=== PATIENT | female | born 1940 | race American Indian/Alaskan Native ===

== ENCOUNTER 2016-12-31 13:33 | Inpatient (IN) | payer MEDICARE, BC ==
--- NOTE | 2016-12-31 14:21 | EDM.PDOC ---
ED HPI GENERAL MEDICAL PROBLEM - General Chief Complaint: Gastrointestinal Problem Stated Complaint: stomach pain hi fever Time Seen by Provider: 12/31/16 14:00 Source of Information: Reports: Patient, Family, RN, RN notes reviewed History Limitations: Reports: No limitations - History of Present Illness INITIAL COMMENTS - FREE TEXT/NARRATIVE: Three days of fever, cough, nausea, vomiting and today had diarrhea. Admits to mild sore throat. Onset Date: 12/28/16 Location: Reports: other (generalized) Quality: Reports: Ache Severity: moderate Improves with: Reports: None Worsens with: Reports: None Associated Symptoms: Reports: no other symptoms - Related Data Allergies Allergy/AdvReac Type Severity Reaction Status Date / Time morphine Allergy Cannot Verified 12/31/16 14:57 Remember Home Meds: Home Meds Furosemide [Lasix] 20 mg PO ASDIRECTED 12/31/16 [History] Hydrochlorothiazide 12.5 mg PO ASDIRECTED 12/31/16 [History] Levothyroxine Sodium [Levo-T] 200 mcg PO .EVERY OTHER DAY 12/31/16 [History] Levothyroxine Sodium [Tirosint] 100 mcg PO .EVERY OTHER DAY 12/31/16 [History] Losartan Potassium 100 mg PO ASDIRECTED 12/31/16 [History] Metoprolol Succinate [Toprol XL] 100 mg PO DAILY 12/31/16 [History] Omeprazole 20 mg PO DAILY 12/31/16 [History] Warfarin [Coumadin] 5 mg PO DAILY 12/31/16 [History] metFORMIN [Glucophage] 500 mg PO BIDMEALS 12/31/16 [History] Past Medical History Cardiovascular History: Reports: Heart Failure, Other (see below) (aortic stenosis. mitral valve disease.) Respiratory History: Reports: Other (see below) (pleural effusions) - Past Surgical History Cardiovascular Surgical History: Reports: Coronary artery bypass (graft x2.), Valve replacement (mitral) GI Surgical History: Reports: Appendectomy, Cholecystectomy Female Surgical History: Reports: Hysterectomy Social & Family History - Family History Family Medical History: Noncontributory - Tobacco Use Smoking Status *Q: Never Smoker - Alcohol Use Alcohol Use History: No ED ROS GENERAL - Review of Systems Review Of Systems: ROS reveals no pertinent complaints other than HPI. ED EXAM, GENERAL - Physical Exam Exam: See Below Exam Limited By: No limitations General Appearance: alert, WD/WN, no apparent distress Eye Exam: bilateral eye: normal inspection Ears: normal external exam, normal canal, hearing grossly normal, normal TMs Nose: normal inspection, normal mucosa, no blood Throat/Mouth: Other (dry oral membranes. Mild pharyngeal erythema.) Head: atraumatic, normocephalic Neck: normal inspection, supple, non-tender, full range of motion Respiratory/Chest: other (decreased sounds at bilateral bases. ) Cardiovascular: other (irregular irregular 3/6 systolic ejection murmur) GI/Abdominal: other (mild generalized tenderness) Back Exam: normal inspection, full range of motion, NT Extremities: normal inspection, normal range of motion, non-tender, normal capillary refill, no pedal edema Neurological: alert, oriented, CN II-XII intact, normal cognition, normal gait, normal reflexes, no motor/sensory deficits Psychiatric: normal affect, normal mood Skin Exam: Warm, Dry, Intact, Normal color, No rash EKG INTERPRETATION EKG Date: 12/31/16 Time: 14:38 Rhythm: a-fib Rate (beats/min): 91 [place]: normal P-wave: absent QRS: other (Borderline IVCD with LAD) ST-T: other (borderline lateral T wave abnormalities) QT: normal Comparison: NA - no prior EKG Course - Vital Signs Last Recorded V/S: Last Vital Signs Temp 37.8 C 12/31/16 14:49 Pulse 83 12/31/16 14:49 Resp 16 12/31/16 14:49 BP 114/60 12/31/16 14:49 Pulse Ox 93 L 12/31/16 14:49 - Orders/Labs/Meds Orders: Active Orders 24 hr Category Date Time Status EKG 12 Lead [EKG Documentation Completion] [RC] STAT Care 12/31/16 14:16 Active Peripheral IV Care [RC] . DIRECTED Care 12/31/16 14:18 Active Abdomen Pelvis wo Cont [CT] Stat Exams 12/31/16 15:28 Taken CULTURE BLOOD [BC] Stat Lab 12/31/16 14:35 Received CULTURE BLOOD [] Stat Lab 12/31/16 14:35 Results CULTURE STREP A CONFIRMATION [] Stat Lab 12/31/16 14:33 Results STREP SCRN A RAPID W CULT CONF [] Stat Lab 12/31/16 14:33 Results Sodium Chloride 0.9% [Saline Flush] Med 12/31/16 14:18 Active 10 ml FLUSH ASDIRECTED PRN Blood Culture x2 Reflex Set [OM.PC] Stat Oth 12/31/16 14:17 Ordered Peripheral IV Insertion Adult [OM.PC] Stat Oth 12/31/16 14:16 Ordered Medication Orders Sodium Chloride (Saline Flush) 10 ml FLUSH ASDIRECTED PRN PRN Reason: Keep Vein Open Labs: Laboratory Tests 12/31/16 12/31/16 12/31/16 Range/Units 14:00 14:35 14:35 WBC 10.4 H (5.0-10.0) 10^3/uL RBC 4.19 L (4.2-5.4) 10^6/uL Hgb 11.6 L (12.0-16.0) g/dL Hct 35.5 L (37.0-47.0) % MCV 84.7 (80-100) fL MCH 27.7 (27.0-34.0) pg MCHC 32.7 L (33.0-35.0) g/dL Plt Count 166 (150-450) 10^3/uL Neut % (Auto) 80.6 H (42.2-75.2) % Lymph % (Auto) 8.0 L (20.5-50.1) % Blair % (Auto) 10.7 H (2-8) % Eos % (Auto) 0.3 L (1.0-3.0) % Baso % (Auto) 0.4 (0.0-1.0) % PT (9.0-12.0) SEC INR (0.9-1.2) Sodium 134 L (135-145) mmol/L Potassium 3.2 L (3.6-5.0) mmol/L Chloride 97 L (101-111) mmol/L Carbon Dioxide 25.0 (21.0-31.0) mmol/L Anion Gap 15.2 BUN 15 (7-18) mg/dL Creatinine 1.0 (0.6-1.3) mg/dL Est Cr Clr Drug Dosing TNP Estimated GFR (MDRD) 54 BUN/Creatinine Ratio 15.00 Glucose 184 H (74-105) mg/dL Lactic Acid (0.5-2.2) mmol/L Calcium 8.8 (8.4-10.2) mg/dl Total Bilirubin 2.1 H (0.2-1.0) mg/dL AST 37 (10-42) IU/L ALT 33 (10-60) IU/L Alkaline Phosphatase 47 (42-121) IU/L Troponin I 0.03 H* (0.00-0.02) ng/ml B-Natriuretic Peptide 413 H (0-100) pg/ml Total Protein 7.1 (6.7-8.2) g/dl Albumin 3.9 (3.2-5.5) g/dl Globulin 3.2 Albumin/Globulin Ratio 1.22 Amylase 22 L (28-100) U/L Lipase 19 L (22-51) U/L Urine Color Yellow (YELLOW) Urine Appearance Clear (CLEAR) Urine pH 5.0 (5.0-9.0) Ur Specific [place] 1.010 (1.005-1.030) Urine Protein Negative (NEGATIVE) Urine Glucose (UA) Negative (NEGATIVE) Urine Ketones Negative (NEGATIVE) Urine Occult Blood Trace-intact H (NEGATIVE) Urine Nitrite Negative (NEGATIVE) Urine Bilirubin Negative (NEGATIVE) Urine Urobilinogen 0.2 (0.2-1.0) mg/dL Ur Leukocyte Esterase Trace H (NEGATIVE) Urine RBC Not seen /HPF Urine WBC 0-5 (0-5/HPF) /HPF Ur Epithelial Cells Rare /HPF Urine Bacteria Not seen (0-FEW/HPF) /HPF 12/31/16 12/31/16 Range/Units 14:35 14:35 WBC (5.0-10.0) 10^3/uL RBC (4.2-5.4) 10^6/uL Hgb (12.0-16.0) g/dL Hct (37.0-47.0) % MCV (80-100) fL MCH (27.0-34.0) pg MCHC (33.0-35.0) g/dL Plt Count (150-450) 10^3/uL Neut % (Auto) (42.2-75.2) % Lymph % (Auto) (20.5-50.1) % Blair % (Auto) (2-8) % Eos % (Auto) (1.0-3.0) % Baso % (Auto) (0.0-1.0) % PT 15.6 H (9.0-12.0) SEC INR 1.5 H (0.9-1.2) Sodium (135-145) mmol/L Potassium (3.6-5.0) mmol/L Chloride (101-111) mmol/L Carbon Dioxide (21.0-31.0) mmol/L Anion Gap BUN (7-18) mg/dL Creatinine (0.6-1.3) mg/dL Est Cr Clr Drug Dosing Estimated GFR (MDRD) BUN/Creatinine Ratio Glucose (74-105) mg/dL Lactic Acid 2.4 H (0.5-2.2) mmol/L Calcium (8.4-10.2) mg/dl Total Bilirubin (0.2-1.0) mg/dL AST (10-42) IU/L ALT (10-60) IU/L Alkaline Phosphatase (42-121) IU/L Troponin I (0.00-0.02) ng/ml B-Natriuretic Peptide (0-100) pg/ml Total Protein (6.7-8.2) g/dl Albumin (3.2-5.5) g/dl Globulin Albumin/Globulin Ratio Amylase (28-100) U/L Lipase (22-51) U/L Urine Color (YELLOW) Urine Appearance (CLEAR) Urine pH (5.0-9.0) Ur Specific [place] (1.005-1.030) Urine Protein (NEGATIVE) Urine Glucose (UA) (NEGATIVE) Urine Ketones (NEGATIVE) Urine Occult Blood (NEGATIVE) Urine Nitrite (NEGATIVE) Urine Bilirubin (NEGATIVE) Urine Urobilinogen (0.2-1.0) mg/dL Ur Leukocyte Esterase (NEGATIVE) Urine RBC /HPF Urine WBC (0-5/HPF) /HPF Ur Epithelial Cells /HPF Urine Bacteria (0-FEW/HPF) /HPF Meds: Medications Generic Name Dose Route Start Last Admin Trade Name Freq PRN Reason Stop Dose Admin Sodium Chloride 10 ml 12/31/16 14:18 Saline Flush FLUSH ASDIRECTED PRN Keep Vein Open Discontinued Medications Generic Name Dose Route Start Last Admin Trade Name Freq PRN Reason Stop Dose Admin Ceftriaxone Sodium 1 gm/ 50 mls @ 100 mls/hr 12/31/16 15:31 12/31/16 15:51 Sodium Chloride IV 12/31/16 16:00 100 mls/hr ONETIME ONE Administration - Radiology Interpretation Free Text/Narrative:: Abdomen X-ray: Few loops of distended bowel may represent obstruction or ileus per rad report. Chest x-ray: Per rad report shows mild opacities in the bases may represent atelectasis or pneumonia. CT abdomen and and pelvis: A few loops of mildly dilated small bowel with air- fluid levels may represent minimal obstruction or ileus. 3cm left ovarian cyst. Hepatomegaly 20cm. Splenomegaly 14cm. Departure - Departure Time of Disposition: 16:44 (Dr. Wade) Disposition: DC/Tfer to [facility] 02 Condition: fair Clinical Impression: Small bowel obstruction, Atelectasis of both lungs Fever Qualifiers: Fever type: unspecified Qualified Code(s): R50.9 - Fever, unspecified Forms: ED Department Discharge - My Orders Last 24 Hours: My Active Orders 12/31/16 14:16 EKG 12 Lead [EKG Documentation Completion] [RC] STAT Peripheral IV Insertion Adult [OM.PC] Stat 12/31/16 14:17 Blood Culture x2 Reflex Set [OM.PC] Stat 12/31/16 14:18 Peripheral IV Care [RC] . DIRECTED Sodium Chloride 0.9% [Saline Flush] 10 ml FLUSH ASDIRECTED PRN 12/31/16 14:33 CULTURE STREP A CONFIRMATION [RM] Stat STREP SCRN A RAPID W CULT CONF [RM] Stat 12/31/16 14:35 CULTURE BLOOD [BC] Stat CULTURE BLOOD [BC] Stat 12/31/16 15:28 Abdomen Pelvis wo Cont [CT] Stat - Assessment/Plan Last 24 Hours: My Active Orders 12/31/16 14:16 EKG 12 Lead [EKG Documentation Completion] [RC] STAT Peripheral IV Insertion Adult [OM.PC] Stat 12/31/16 14:17 Blood Culture x2 Reflex Set [OM.PC] Stat 12/31/16 14:18 Peripheral IV Care [RC] . DIRECTED Sodium Chloride 0.9% [Saline Flush] 10 ml FLUSH ASDIRECTED PRN 12/31/16 14:33 CULTURE STREP A CONFIRMATION [RM] Stat STREP SCRN A RAPID W CULT CONF [RM] Stat 12/31/16 14:35 CULTURE BLOOD [BC] Stat CULTURE BLOOD [BC] Stat 12/31/16 15:28 Abdomen Pelvis wo Cont [CT] Stat
[2016-12-31 15:07] LABS: CHLORIDE,CL 97 mmol/L (101-111); SODIUM,NA 134 mmol/L (135-145)
[2016-12-31] MEDS ORDERED: cefTRIAXone 1 GM in Sodium Chloride 0.9% 50 ML IV ONE (15:31)
--- NOTE | 2016-12-31 18:06 | PCM.HP ---
H&P History of Present Illness - General Date of Service: 12/31/16 Admit Problem/Dx: Admitted with diarrhea and vomiting X 1 ( today) and possible Pneumonia Source of Information: Patient, Old records History Limitations: Reports: No limitations. Denies: Respiratory distress - History of Present Illness Initial Comments - Free Text/Narative: Mrs. 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 abb/Pelvis ( today 12/31/16) and Few loops of Mildly dilatedsmall bowel with air-fluid levels, may Represent Minimal Obstruction or Ileus, Hepatomegaly ( 20 cm) and spleenomegaly ( 14 cm). Pt also had CXR mild opacites at the bases may represent atelectasis or Or pneumonia Onset of Symptoms: Reports: gradual Location: Reports: abdomen - Related Data Allergies/Adverse Reactions: Allergies Allergy/AdvReac Type Severity Reaction Status Date / Time morphine Allergy Cannot Verified 12/31/16 14:57 Remember Home Medications: Home Meds Furosemide [Lasix] 20 mg PO ASDIRECTED 12/31/16 [History] Hydrochlorothiazide 12.5 mg PO ASDIRECTED 12/31/16 [History] Levothyroxine Sodium [Levo-T] 200 mcg PO .EVERY OTHER DAY 12/31/16 [History] Levothyroxine Sodium [Tirosint] 100 mcg PO .EVERY OTHER DAY 12/31/16 [History] Losartan Potassium 100 mg PO ASDIRECTED 12/31/16 [History] Metoprolol Succinate [Toprol XL] 100 mg PO DAILY 12/31/16 [History] Omeprazole 20 mg PO DAILY 12/31/16 [History] Warfarin [Coumadin] 5 mg PO DAILY 12/31/16 [History] metFORMIN [Glucophage] 500 mg PO BIDMEALS 12/31/16 [History] Past Medical History Cardiovascular History: Reports: Heart Failure, Other (see below) (aortic stenosis. mitral valve disease.) Respiratory History: Reports: Other (see below) (pleural effusions) Endocrine/Metabolic History: Reports: Hyperthyroidism - Past Surgical History Cardiovascular Surgical History: Reports: Coronary artery bypass (graft x2.), Valve replacement (mitral) GI Surgical History: Reports: Appendectomy, Cholecystectomy Female Surgical History: Reports: Hysterectomy Social & Family History - Family History Family Medical History: Noncontributory - Tobacco Use Smoking Status *Q: Never Smoker Second Hand Smoke Exposure: No - Caffeine Use Caffeine Use: Reports: Coffee - Recreational Drug Use Recreational Drug Use: No H&P Review of Systems - Review of Systems: Review Of Systems: See Below General: Reports: decreased appetite. Denies: fever, chills, weakness HEENT: Denies: headaches, rhinitis, sinus congestion, sore throat Pulmonary: Reports: Cough, Sputum. Denies: Shortness of Breath, Wheezing, Hemoptysis Cardiovascular: Denies: chest pain, lightheadedness, claudication Gastrointestinal: Reports: Diarrhea, Decreased appetite, Distension, Vomiting. Denies: Abdominal pain Genitourinary: Denies: dysuria, frequency, burning, urgency Skin: Denies: cyanosis, jaundice, bruising, pruritis, rash Psychiatric: Denies: confusion, anxiety, hallucinations Neurological: Denies: Confusion, Dizziness, Tingling Hematologic/Lymphatic: Reports: no symptoms Immunologic: Denies: environmental allergy, seasonal allergy Exam - Exam Exam: See Below - Vital Signs Vital Signs: Last Vital Signs Temp 37.8 C 12/31/16 14:49 Pulse 83 12/31/16 14:49 Resp 16 12/31/16 14:49 BP 114/60 12/31/16 14:49 Pulse Ox 93 L 12/31/16 14:49 Weight: 79.379 kg - Exam Quality Assessment: DVT prophylaxis. No: supplemental oxygen, urinary catheter General: alert, oriented, cooperative HEENT: Conjunctiva clear, EOMI, Normal nasal septum, Pupils equal, Pupils reactive Neck: supple. No: lymphadenopathy, thyromegaly Lungs: Clear to auscultation, Normal respiratory effort. No: Crackles, Wheezing Cardiovascular: irregular rhythm, systolic murmur Abdomen: soft, hyperactive bowel sounds. No: guarding, rigidity, rebound (Female) Exam: Deferred Rectal (Female) Exam: Deferred Back Exam: normal inspection, full range of motion Extremities: normal inspection. No: calf tenderness, edema Skin: warm, dry, intact Neurological: cranial nerves intact, reflexes equal bilateral Neuro Extensive - Mental Status: oriented x3, normal mood/affect, normal cognition Neuro Extensive - Motor, Sensory, Reflexes: CN II-XII intact, normal gait, normal reflexes Psychiatric: alert, normal affect, normal mood - Patient Data Result Diagrams: 12/31/16 14:35 12/31/16 14:35 *Q Meaningful Use (ADM) - VTE *Q VTE Criteria *Q: - Stroke *Q Stroke Criteria *Q: - AMI *Q AMI Criteria *Q: - Problem List (1) Pneumonia SNOMED Code(s): 466065368 ICD Code: J18.9 - PNEUMONIA, UNSPECIFIED ORGANISM Status: Acute Current Visit: Yes (2) Hypokalemia SNOMED Code(s): 65188126 ICD Code: E87.6 - HYPOKALEMIA Status: Acute Current Visit: Yes (3) Diarrhea SNOMED Code(s): 62879538 ICD Code: R19.7 - DIARRHEA, UNSPECIFIED Status: Acute Current Visit: Yes (4) Small bowel obstruction SNOMED Code(s): 063118200 ICD Code: K56.69 - OTHER INTESTINAL OBSTRUCTION Status: Acute Current Visit: Yes (5) Diabetes SNOMED Code(s): 11989588 ICD Code: E11.9 - TYPE 2 DIABETES MELLITUS WITHOUT COMPLICATIONS Status: Acute Current Visit: Yes Problem List Initiated/Reviewed/Updated: Yes Orders Last 24hrs: Medication Orders Sodium Chloride (Saline Flush) 10 ml FLUSH ASDIRECTED PRN PRN Reason: Keep Vein Open Assessment/Plan Comment:: Mrs. Farzana Calderón is a 76-year-old female with complaints of increasing abdominal discomfort, Diarrhea ( watery stool), Not passing gas, feels bloted, had vomited once today, and this kind og on-off diarrhea is going on for the last 3-[address] abb/Pelvis ( today 12/31/16) and Few loops of Mildly dilatedsmall bowel with air-fluid levels, may Represent Minimal Obstruction or Ileus, Hepatomegaly ( 20 cm) and spleenomegaly ( 14 cm). Pt also had CXR mild opacites at the bases may represent atelectasis or Or pneumonia 1. Likely Small Bowel obstruction/Ileus: - Will keep her NPO -Will start D5 NS with potassium at 75 ml/hr -Will also place a NG tube and keep at intermittent suction 2. Possible Pneumonia: CXR showed suggest opacites Vs Pneumonia -Will start on Zosyn 3. Diabetes II ( Non-insulin dependent): she was on Metformin 1000 mg daily -Will hold now and cover with Insulin as she will be NPO 4. Hypertension: BP acceptable and will hold medication , If BP elevated then will give IV hydralazine or Labetalol 5. A-Fib:Chronic: She was on Coumadin, sine she will be NPO will hold coumadin for a day and cotinue on Levonex 6. GI prophylaxis: continue IV protonix 7. DVT prophylaxis: OJ swain and Levonex Code Status: Full Code
[2016-12-31] MEDS ORDERED: Sodium Chloride 0.9% with KCl 1,000 ML IV SCH (18:45)
[2016-12-31] MEDS: Sodium Chloride 0.9% 10 ML Syringe FLUSH PRN ×2 (20:02→20:40)
[2016-12-31] MEDS: Piperacillin/Tazobactam 3.375 GM in Sodium Chloride 0.9% 100 ML IV SCH (20:03)
[2017-01-01] MEDS: Sodium Chloride 0.9% 10 ML Syringe FLUSH PRN ×3 (00:04→02:11)
[2017-01-01] MEDS: Piperacillin/Tazobactam 3.375 GM in Sodium Chloride 0.9% 100 ML IV SCH ×4 (00:05→17:20)
[2017-01-01] MEDS ORDERED: Potassium Chloride 20 MEQ in Premix Bag 1 BAG IV SCH (07:59)
[2017-01-01] MEDS ORDERED: Enoxaparin 40 MG/0.4 ML Syringe SUBCUT SCH (09:00)
[2017-01-01] MEDS: Pantoprazole 40 MG Vial IVPUSH SCH (09:23)
--- NOTE | 2017-01-01 11:44 | PCM.PN ---
- General Info Date of Service: 01/01/17 Admission Dx/Problem (Free Text): Admitted with diarrhea and vomiting X 1 ( today) and possible Pneumonia and CT finding small bowel obstruction/ileus Functional Status: Reports: pain controlled, urinating, other (NPO) - Review of Systems General: Reports: Weakness. Denies: Fever, Chills HEENT: Reports: ear pain. Denies: headaches, post nasal drip, sinus congestion , sore throat Pulmonary: Reports: sputum. Denies: shortness of breath, cough, wheezing Cardiovascular: Denies: Chest Pain, Edema, Lightheadedness Gastrointestinal: Reports: Diarrhea, Vomiting. Denies: Abdominal pain, Nausea Genitourinary: Denies: dysuria, frequency, burning, urgency Musculoskeletal: Denies: neck pain, shoulder pain, leg pain, foot pain Skin: Denies: cyanosis, jaundice, bruising, pruritis, rash Neurological: Denies: Confusion, Tingling, Tremors Psychiatric: Denies: confusion, anxiety - Patient Data Vitals - most recent: Last Vital Signs Temp 37.7 C 01/01/17 11:00 Pulse 93 01/01/17 11:00 Resp 20 01/01/17 11:00 BP 78/55 L 01/01/17 11:00 Pulse Ox 92 L 01/01/17 11:00 Weight - most recent: 79.379 kg I&O - last 24 hours: Intake & Output 12/31/16 01/01/17 01/01/17 22:59 06:59 14:59 Intake Total 98 193 Output Total 350 Balance 98 -157 Lab Results last 24 hrs: Laboratory Results - last 24 hr 12/31/16 01/01/17 01/01/17 Range/Units 18:44 05:30 07:39 Sodium 138 (135-145) mmol/L Potassium 3.3 L (3.6-5.0) mmol/L Chloride 101 (101-111) mmol/L Carbon Dioxide 25.0 (21.0-31.0) mmol/L Anion Gap 15.3 BUN 18 (7-18) mg/dL Creatinine 1.0 (0.6-1.3) mg/dL Est Cr Clr Drug Dosing 43.40 mL/min Estimated GFR (MDRD) 54 Glucose 156 H (74-105) mg/dL POC Glucose 137 H 171 H (83-110) mg/dl Calcium 8.6 (8.4-10.2) mg/dl Med Orders - Current: Current Medications Enoxaparin Sodium (Lovenox) 40 mg SUBCUT DAILY [facility] Last Admin: 01/01/17 09:23 Dose: 40 mg Piperacillin Sod/Tazobactam (Sod 3.375 gm/ Sodium Chloride) 100 mls @ 200 mls/ hr IV Q6H [facility] Last Admin: 01/01/17 05:42 Dose: 200 mls/hr Potassium Chloride/Sodium Chloride (Normal Saline With 40 Meq Kcl) 1,000 mls @ 100 mls/hr IV ASDIRECTED [facility] Last Admin: 01/01/17 02:14 Dose: 100 mls/hr Sodium Chloride (Normal Saline) 1,000 mls @ 100 mls/hr IV ASDIRECTED [facility] Pantoprazole Sodium (Protonix Iv) 40 mg IVPUSH DAILY [facility] Last Admin: 01/01/17 09:23 Dose: 40 mg Sodium Chloride (Saline Flush) 10 ml FLUSH ASDIRECTED PRN PRN Reason: Keep Vein Open Last Admin: 01/01/17 02:11 Dose: 10 ml Discontinued Medications Ceftriaxone Sodium 1 gm/ (Sodium Chloride) 50 mls @ 100 mls/hr IV ONETIME ONE Stop: 12/31/16 16:00 Last Admin: 12/31/16 15:51 Dose: 100 mls/hr Potassium Chloride 20 meq/ (Premix) 100 mls @ 50 mls/hr IV Q1H [facility] Stop: 01/01/17 08:58 Last Admin: 01/01/17 08:11 Dose: Not Given - Exam Quality Assessment: DVT prophylaxis. No: supplemental oxygen, urine catheter General: alert, oriented, cooperative, no acute distress HEENT: Pupils equal, Mucous membr. moist/pink, Other (NG tube in place and still draining is significant) Neck: supple. No: no thyromegaly, lymphadenopathy Lungs: Clear to auscultation, Normal respiratory effort. No: Crackles, Wheezing Cardiovascular: Regular Rate, Regular Rhythm, Murmurs Abdomen: soft, distension, other (hyperactive bowel sound). No: rebound, guarding (Female) Exam: Deferred Back Exam: normal inspection, full range of motion Extremities: no edema, no tenderness/swelling, no clubbing, no calf tenderness Skin: warm, dry, intact Neurological: no new focal deficit Psy/Mental Status: alert, normal affect, normal mood - Problem List & Annotations (1) Pneumonia SNOMED Code(s): 040859291 Code(s): J18.9 - PNEUMONIA, UNSPECIFIED ORGANISM Status: Acute Current Visit: Yes (2) Hypokalemia SNOMED Code(s): 91163317 Code(s): E87.6 - HYPOKALEMIA Status: Acute Current Visit: Yes (3) Diarrhea SNOMED Code(s): 35938209 Code(s): R19.7 - DIARRHEA, UNSPECIFIED Status: Acute Current Visit: Yes (4) Small bowel obstruction SNOMED Code(s): 624484553 Code(s): K56.69 - OTHER INTESTINAL OBSTRUCTION Status: Acute Current Visit: Yes (5) Diabetes SNOMED Code(s): 63390170 Code(s): E11.9 - TYPE 2 DIABETES MELLITUS WITHOUT COMPLICATIONS Status: Acute Current Visit: Yes - Problem List Review Problem List Initiated/Reviewed/Updated: Yes - My Orders Last 24 Hours: My Active Orders 12/31/16 18:00 Piperacillin/Tazobactam [Zosyn] 3.375 gm Sodium Chloride 0.9% [Normal Saline] 100 ml IV Q6H 12/31/16 18:40 NG [Nasogastric Orogastric Tube Insertion] [OM.PC] Routine 12/31/16 18:45 Sodium Chloride 0.9% with KCl [Normal Saline with 40 mEq KCl] 1,000 ml IV ASDIRECTED 01/01/17 08:09 Blood Glucose Check, Bedside [RC] BIDAC 01/01/17 08:15 Sodium Chloride 0.9% [Normal Saline] 1,000 ml IV ASDIRECTED 01/01/17 09:00 Pantoprazole [ProTONIX IV] 40 mg IVPUSH DAILY 01/01/17 15:00 POTASSIUM,K [CHEM] Routine - Plan Plan:: Mrs. Farzana Calderón is a 76-year-old female with complaints of increasing abdominal discomfort, Diarrhea ( watery stool), Not passing gas, feels bloted, had vomited once today, and this kind og on-off diarrhea is going on for the last 3-[address] abb/Pelvis ( today 12/31/16) and Few loops of Mildly dilatedsmall bowel with air-fluid levels, may Represent Minimal Obstruction or Ileus, Hepatomegaly ( 20 cm) and spleenomegaly ( 14 cm). Pt also had CXR mild opacites at the bases may represent atelectasis or Or pneumonia 1. Likely partial Small Bowel obstruction/Ileus: - Will continue her NPO -Will continue D5 NS with potassium at 75 ml/hr -Has NG tube in place and keep at intermittent suction, still draining significant amount of biliary fluids -She has stared to have flatus and once NG out put slows down will advance her to clear liquid 2. Possible Pneumonia: CXR showed suggest opacites Vs Pneumonia -Will continue her on Zosyn 3. Diabetes II ( Non-insulin dependent): she was on Metformin 1000 mg daily -Will hold now and cover with Insulin as she will be NPO 4. Hypertension: BP acceptable and will hold medication , If BP elevated then will give IV hydralazine or Labetalol 5. A-Fib:Chronic: She was on Coumadin, sine she will be NPO will hold coumadin for a day and cotinue on Levonex 6. Hypokalemia: This is from no oral Intake, will continue IV fluids with 40 meq of potassium -Will check Potassium again today and if low will give IV Replacement 6. GI prophylaxis: continue IV protonix 7. DVT prophylaxis: OJ swain and Levonex Code Status: Full Code
[2017-01-01] MEDS: Sodium Chloride 0.9% 1,000 ML IV SCH (14:49)
[2017-01-01] MEDS ORDERED: Zolpidem 5 MG Tab PO PRN (20:18)
[2017-01-01] MEDS: guaiFENesin 100 MG/5 ML Soln 5 ML UD Cup PO PRN (22:26)
[2017-01-01] MEDS ORDERED: Enoxaparin 80 MG/0.8 ML Syringe SUBCUT ONE (22:31)
[2017-01-01] MEDS ORDERED: Metoprolol Succinate 50 MG Tab.ER PO SCH (22:45)
[2017-01-01] MEDS ORDERED: Hydrochlorothiazide 25 MG Tab PO SCH (22:45)
[2017-01-02] MEDS: Piperacillin/Tazobactam 3.375 GM in Sodium Chloride 0.9% 100 ML IV SCH ×5 (00:04→23:49)
[2017-01-02] MEDS: Sodium Chloride 0.9% 1,000 ML IV SCH (02:21)
[2017-01-02 07:00] LABS: CHLORIDE,CL 104 mmol/L (101-111); SODIUM,NA 137 mmol/L (135-145)
[2017-01-02] MEDS ORDERED: Potassium Chloride 10 MEQ Tab.ER PO ONE ×2 (08:05→16:00)
[2017-01-02] MEDS: Pantoprazole 40 MG Vial IVPUSH SCH (08:12)
[2017-01-02] MEDS ORDERED: Furosemide 40 MG/4 ML VIAL IVPUSH ONE (08:56)
[2017-01-02] MEDS: Enoxaparin 80 MG/0.8 ML Syringe SUBCUT SCH ×2 (09:00→20:27)
[2017-01-02] MEDS: Metoprolol Succinate 50 MG Tab.ER PO SCH (09:00)
[2017-01-02] MEDS: Omeprazole 20 MG Cap.CR PO SCH (09:01)
[2017-01-02] MEDS: metFORMIN 500 MG Tab PO SCH ×2 (09:01→17:43)
[2017-01-02] MEDS: Losartan 50 MG Tab PO SCH (09:01)
[2017-01-02] MEDS: Hydrochlorothiazide 25 MG Tab PO SCH (09:02)
--- NOTE | 2017-01-02 09:12 | PCM.PN ---
- General Info Date of Service: 01/02/17 Admission Dx/Problem (Free Text): Admitted with diarrhea and vomiting X 1 ( today) and possible Pneumonia and CT finding small bowel obstruction/ileus Subjective Update: patient states that she is feeling better however she had episodes of diarrhea this morning. her diarrhea was kind of black yesterday. she is still having bad coughing in addition to her chronic shortness of breath and lower extremity edema. Patient told me that she has been having diarrhea for the last one-2 months. She saw her primary care doctor in [place] for that and her C. difficile was negative. Patient states that she had Cipro taken within loss 2 months. She was also admitted in the last 2 months for GI bleed. according to her she had endoscopy and showed possible bleed from being on Coumadin and no intervention was done. Prior to admission she had 3 days of fever and chills in addition to worsening cough and worsening diarrhea. She stated that she has chronic shortness of breath from having congestive heart failure causing pleural effusion. She denies worsening of her lower extremities edema. She denies nausea or vomiting, fever, chills, chest pain, abdominal pain for last 12 hours. last time she checked her INR was at least one month ago and was within normal range. She has not had change in her dose for months. - Patient Data Vitals - most recent: Last Vital Signs Temp 37.7 C 01/02/17 07:35 Pulse 97 01/02/17 09:00 Resp 20 01/02/17 07:35 BP 132/76 01/02/17 09:01 Pulse Ox 92 L 01/02/17 07:35 Weight - most recent: 79.379 kg I&O - last 24 hours: Intake & Output 01/01/17 01/02/17 01/02/17 22:59 06:59 14:59 Intake Total 1150 2100 500 Output Total 225 150 Balance 925 1950 500 Lab Results last 24 hrs: Laboratory Results - last 24 hr 01/01/17 01/01/17 01/02/17 Range/Units 15:10 16:32 06:15 WBC (5.0-10.0) 10^3/uL RBC (4.2-5.4) 10^6/uL Hgb (12.0-16.0) g/dL Hct (37.0-47.0) % MCV (80-100) fL MCH (27.0-34.0) pg MCHC (33.0-35.0) g/dL Plt Count (150-450) 10^3/uL Neut % (Auto) (42.2-75.2) % Lymph % (Auto) (20.5-50.1) % [place] % (Auto) (2-8) % Eos % (Auto) (1.0-3.0) % Baso % (Auto) (0.0-1.0) % PT (9.0-12.0) SEC INR (0.9-1.2) Sodium 137 (135-145) mmol/L Potassium 3.5 L 3.1 L (3.6-5.0) mmol/L Chloride 104 (101-111) mmol/L Carbon Dioxide 22.0 (21.0-31.0) mmol/L Anion Gap 14.1 BUN 17 (7-18) mg/dL Creatinine 0.9 (0.6-1.3) mg/dL Est Cr Clr Drug Dosing 48.23 mL/min Estimated GFR (MDRD) > 60 Glucose 157 H (74-105) mg/dL POC Glucose 158 H (83-110) mg/dl Calcium 7.9 L (8.4-10.2) mg/dl 01/02/17 01/02/17 01/02/17 Range/Units 06:15 06:15 07:28 WBC 7.9 (5.0-10.0) 10^3/uL RBC 3.95 L (4.2-5.4) 10^6/uL Hgb 11.1 L (12.0-16.0) g/dL Hct 34.6 L (37.0-47.0) % MCV 87.6 (80-100) fL MCH 28.1 (27.0-34.0) pg MCHC 32.1 L (33.0-35.0) g/dL Plt Count 140 L (150-450) 10^3/uL Neut % (Auto) 76.9 H (42.2-75.2) % Lymph % (Auto) 11.6 L (20.5-50.1) % [place] % (Auto) 11.0 H (2-8) % Eos % (Auto) 0.1 L (1.0-3.0) % Baso % (Auto) 0.4 (0.0-1.0) % PT 12.9 H (9.0-12.0) SEC INR 1.3 H (0.9-1.2) Sodium (135-145) mmol/L Potassium (3.6-5.0) mmol/L Chloride (101-111) mmol/L Carbon Dioxide (21.0-31.0) mmol/L Anion Gap BUN (7-18) mg/dL Creatinine (0.6-1.3) mg/dL Est Cr Clr Drug Dosing mL/min Estimated GFR (MDRD) Glucose (74-105) mg/dL POC Glucose 165 H (83-110) mg/dl Calcium (8.4-10.2) mg/dl Med Orders - Current: Current Medications Acetaminophen (Tylenol) 650 mg PO Q6H PRN PRN Reason: Pain/Fever Enoxaparin Sodium (Lovenox) 80 mg SUBCUT Q12HR [facility] Last Admin: 01/02/17 09:00 Dose: 80 mg Furosemide (Lasix) 20 mg PO DAILY [facility] Furosemide (Lasix) 40 mg IVPUSH NOW ONE Stop: 01/02/17 08:57 Guaifenesin (Robitussin) 100 mg PO Q6H PRN PRN Reason: Cough Last Admin: 01/01/17 22:26 Dose: 100 mg Hydrochlorothiazide (Hydrochlorothiazide) 12.5 mg PO DAILY [facility] Last Admin: 01/02/17 09:02 Dose: 12.5 mg Piperacillin Sod/Tazobactam (Sod 3.375 gm/ Sodium Chloride) 100 mls @ 200 mls/ hr IV Q6H [facility] Last Admin: 01/02/17 05:42 Dose: 200 mls/hr Losartan Potassium (Cozaar) 100 mg PO DAILY [facility] Last Admin: 01/02/17 09:01 Dose: 100 mg Metformin HCl (Glucophage) 500 mg PO BIDMEALS [facility] Last Admin: 01/02/17 09:01 Dose: 500 mg Metoprolol Succinate (Toprol Xl) 100 mg PO DAILY [facility] Last Admin: 01/02/17 09:00 Dose: 100 mg Non-Formulary Medication (Levothyroxine Sodium) 200 mcg PO .EVERY OTHER DAY [facility] Non-Formulary Medication (Levothyroxine Sodium [Tirosint]) 100 mcg PO .EVERY OTHER DAY [facility] Omeprazole (Omeprazole) 20 mg PO ACBREAKFAST [facility] Last Admin: 01/02/17 09:01 Dose: 20 mg Pantoprazole Sodium (Protonix Iv) 40 mg IVPUSH DAILY [facility] Last Admin: 01/02/17 08:12 Dose: 40 mg Sodium Chloride (Saline Flush) 10 ml FLUSH ASDIRECTED PRN PRN Reason: Keep Vein Open Last Admin: 01/01/17 02:11 Dose: 10 ml Warfarin Sodium (Coumadin) 5 mg PO DAILY@1400 [facility] Zolpidem Tartrate (Ambien) 5 mg PO BEDTIME PRN PRN Reason: Insomnia Discontinued Medications Enoxaparin Sodium (Lovenox) 40 mg SUBCUT DAILY [facility] Last Admin: 01/01/17 09:23 Dose: 40 mg Enoxaparin Sodium (Lovenox) 80 mg SUBCUT ONETIME ONE Stop: 01/01/17 22:32 Last Admin: 01/01/17 22:48 Dose: 80 mg Hydrochlorothiazide (Hydrochlorothiazide) 12.5 mg PO DAILY [facility] Last Admin: 01/01/17 22:46 Dose: 12.5 mg Ceftriaxone Sodium 1 gm/ (Sodium Chloride) 50 mls @ 100 mls/hr IV ONETIME ONE Stop: 12/31/16 16:00 Last Admin: 12/31/16 15:51 Dose: 100 mls/hr Potassium Chloride/Sodium Chloride (Normal Saline With 40 Meq Kcl) 1,000 mls @ 50 mls/hr IV ASDIRECTED [facility] Last Admin: 01/01/17 02:14 Dose: 100 mls/hr Potassium Chloride 20 meq/ (Premix) 100 mls @ 50 mls/hr IV Q1H [facility] Stop: 01/01/17 08:58 Last Admin: 01/01/17 08:11 Dose: Not Given Sodium Chloride (Normal Saline) 1,000 mls @ 100 mls/hr IV ASDIRECTED [facility] Last Admin: 01/02/17 02:21 Dose: 100 mls/hr Metoprolol Succinate (Toprol Xl) 100 mg PO DAILY [facility] Last Admin: 01/01/17 22:44 Dose: 100 mg Potassium Chloride (Klor-Con 10) 40 meq PO ONETIME ONE Stop: 01/02/17 08:06 Last Admin: 01/02/17 09:01 Dose: 40 meq - Exam General: alert, oriented, cooperative, mild distress. No: moderate distress, severe distress, sedated, lethargic, obtunded HEENT: Pupils equal, Pupils reactive, EOMI, Mucous membr. moist/pink Neck: supple, trachea midline, no JVD Lungs: Decreased breath sounds, Crackles, Wheezing. No: Rub, Stridor Cardiovascular: Regular Rate, Regular Rhythm Abdomen: bowel sounds present, soft, no tenderness, distension (mildly). No: rigidity, rebound, guarding, CVA tenderness, organomegaly (Female) Exam: Deferred Back Exam: normal inspection Extremities: normal pulses, no tenderness/swelling, no clubbing, no cyanosis, no calf tenderness, edema (+2 pitting bilaterally in lower extremities) Skin: warm, dry, intact Neurological: no new focal deficit, normal speech, strength equal bilateral Psy/Mental Status: alert, normal affect, normal mood - Problem List Review Problem List Initiated/Reviewed/Updated: Yes - My Orders Last 24 Hours: My Active Orders 01/01/17 20:16 Acetaminophen [Tylenol] 650 mg PO Q6H PRN 01/01/17 20:17 guaiFENesin [Robitussin] 100 mg PO Q6H PRN 01/01/17 20:18 Zolpidem [Ambien] 5 mg PO BEDTIME PRN 01/02/17 08:03 Pharmacy Consult [Consult to Pharmacy] [CONS] Routine 01/02/17 08:15 Levothyroxine Sodium 200 mcg PO .EVERY OTHER DAY Levothyroxine Sodium [Tirosint] 100 mcg PO .EVERY OTHER DAY Omeprazole 20 mg PO ACBREAKFAST metFORMIN [Glucophage] 500 mg PO BIDMEALS 01/02/17 08:56 Furosemide [Lasix] 40 mg IVPUSH NOW ONE 01/02/17 08:57 CULTURE STOOL [RM] Routine 01/02/17 09:00 Enoxaparin [Lovenox] 80 mg SUBCUT Q12HR Hydrochlorothiazide 12.5 mg PO DAILY Losartan [Cozaar] 100 mg PO DAILY Metoprolol Succinate [Toprol XL] 100 mg PO DAILY 01/02/17 14:00 Warfarin [Coumadin] 5 mg PO DAILY@1400 01/02/17 Lunch Advance Diet Instructions [DIET] 01/03/17 05:11 BASIC METABOLIC PANEL,BMP [CHEM] AM CBC WITH AUTO DIFF [HEME] AM 01/03/17 09:00 Furosemide [Lasix] 20 mg PO DAILY - Plan Plan:: Mrs. Farzana Calderón is a 76-year-old female with complaints of increasing abdominal discomfort, Diarrhea ( watery stool), Not passing gas, feels bloted, had vomited once today, and this kind og on-off diarrhea is going on for the last 3-[address] abb/Pelvis ( today 12/31/16) and Few loops of Mildly dilatedsmall bowel with air-fluid levels, may Represent Minimal Obstruction or Ileus, Hepatomegaly ( 20 cm) and spleenomegaly ( 14 cm). Pt also had CXR mild opacites at the bases may represent atelectasis or Or pneumonia Likely partial Small Bowel obstruction/Ileus: -she started on clear liquid diet yesterday and she tolerated that well. Blood and diet as tolerated -stop IV fluid infusion -Had NG tube in place and keep at intermittent suction. tube was removed yesterday -she is passing flatus and having diarrhea diarrhea -today I ordered C. difficile and stool culture -I advised her to follow up as manager acquisition as soon as possible after discharge Possible Pneumonia: CXR showed suggest opacites Vs Pneumonia -Will continue her on Zosyn -Robitussin for cough and -She denies history of smoking possible history of congestive heart failure -I was not able to access her echo from [facility]. 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 -all give her Lasix 40 mg IV once this morning and restart her on her daily oral Lasix 20 mg tomorrow chronic anticoagulation INR 1.5 yesterday. Today 1.3. Last time she had her Coumadin was and admission -I will give her therapeutic dose of Lovenox and restart her on Coumadin. Pharmacy was consulted Diabetes II ( Non-insulin dependent): she was on Metformin 1000 mg daily -Will hold now and cover with Insulin as she will be NPO Hypertension: BP acceptable and will hold medication , If BP elevated then will give IV hydralazine or Labetalol A-Fib:Chronic: rate was high yesterday so Toprol was resumed last night. resume Coumadin Hypokalemia: oral replacement in addition to starting her on advanced as tolerated diet -Will check Potassium again tomorrow hyponatremia. Improving Oral replacement GI prophylaxis: continue IV protonix DVT prophylaxis: OJ swain and Levonex Code Status: Full Code 37 minutes were spent, more than half of it was counseling about her differential diagnosis and management for diarrhea, and her Coumadin and possible congestive heart failure
[2017-01-02] MEDS: Levothyroxine 100 MCG Tab PO SCH (10:01)
[2017-01-02] MEDS: Sodium Chloride 0.9% 10 ML Syringe FLUSH PRN (11:51)
[2017-01-02] MEDS: Albuterol/Ipratropium 3.0-0.5 MG/3 ML Neb Soln NEB SCH ×2 (13:36→17:53)
[2017-01-02] MEDS ORDERED: Warfarin 5 MG Tab PO SCH (14:00)
[2017-01-02] MEDS: Acetaminophen 325 MG Tab PO PRN ×2 (14:31→20:34)
[2017-01-02] MEDS: guaiFENesin 100 MG/5 ML Soln 5 ML UD Cup PO PRN (20:28)
[2017-01-03] MEDS: Albuterol/Ipratropium 3.0-0.5 MG/3 ML Neb Soln NEB SCH ×4 (00:41→18:25)
[2017-01-03] MEDS: guaiFENesin 100 MG/5 ML Soln 5 ML UD Cup PO PRN ×3 (04:10→23:26)
[2017-01-03] MEDS ORDERED: Levothyroxine 100 MCG Tab PO SCH (06:00)
[2017-01-03] MEDS: Omeprazole 20 MG Cap.CR PO SCH (06:04)
[2017-01-03] MEDS: Piperacillin/Tazobactam 3.375 GM in Sodium Chloride 0.9% 100 ML IV SCH ×4 (06:05→23:29)
[2017-01-03] MEDS: Enoxaparin 80 MG/0.8 ML Syringe SUBCUT SCH ×2 (08:37→20:23)
[2017-01-03] MEDS: Pantoprazole 40 MG Vial IVPUSH SCH (08:38)
[2017-01-03] MEDS: Metoprolol Succinate 50 MG Tab.ER PO SCH (08:38)
[2017-01-03] MEDS: Losartan 50 MG Tab PO SCH (08:42)
[2017-01-03] MEDS: Hydrochlorothiazide 25 MG Tab PO SCH (08:43)
[2017-01-03] MEDS: metFORMIN 500 MG Tab PO SCH ×2 (08:43→18:25)
[2017-01-03] MEDS: Furosemide 20 MG Tab PO SCH (08:43)
[2017-01-03] MEDS ORDERED: Potassium Chloride 20 MEQ in Premix Bag 1 BAG IV ONE (09:09)
[2017-01-03] MEDS ORDERED: Warfarin 2.5 MG Tab PO ONE (14:00)
--- NOTE | 2017-01-03 23:53 | PCM.PN ---
- General Info Date of Service: 01/03/17 Subjective Update: feels better today, still having diarrhea but better, and now passing gas; able to tolerate meal well. no nausea nor vomiting. had an episode of hemoptysis. Functional Status: Reports: pain controlled, tolerating diet, ambulating - Patient Data Vitals - most recent: Last Vital Signs Temp 35.9 C 01/03/17 21:54 Pulse 81 01/03/17 21:54 Resp 20 01/03/17 21:54 BP 110/63 01/03/17 21:54 Pulse Ox 98 01/03/17 21:54 Weight - most recent: 77.746 kg I&O - last 24 hours: Intake & Output 01/03/17 01/03/17 01/04/17 14:59 22:59 06:59 Intake Total 478 700 Output Total 500 1200 Balance -22 -500 Lab Results last 24 hrs: Laboratory Results - last 24 hr 01/03/17 01/03/17 01/03/17 Range/Units 05:58 05:58 05:58 WBC 6.4 (5.0-10.0) 10^3/uL RBC 3.97 L (4.2-5.4) 10^6/uL Hgb 10.9 L (12.0-16.0) g/dL Hct 34.7 L (37.0-47.0) % MCV 87.4 (80-100) fL MCH 27.5 (27.0-34.0) pg MCHC 31.4 L (33.0-35.0) g/dL Plt Count 146 L (150-450) 10^3/uL Neut % (Auto) 72.6 (42.2-75.2) % Lymph % (Auto) 14.6 L (20.5-50.1) % [place] % (Auto) 10.6 H (2-8) % Eos % (Auto) 1.9 (1.0-3.0) % Baso % (Auto) 0.3 (0.0-1.0) % PT 12.2 H (9.0-12.0) SEC INR 1.2 (0.9-1.2) Sodium 139 (135-145) mmol/L Potassium 3.3 L (3.6-5.0) mmol/L Chloride 105 (101-111) mmol/L Carbon Dioxide 25.0 (21.0-31.0) mmol/L Anion Gap 12.3 BUN 25 H (7-18) mg/dL Creatinine 1.0 (0.6-1.3) mg/dL Est Cr Clr Drug Dosing 43.40 mL/min Estimated GFR (MDRD) 54 Glucose 144 H (74-105) mg/dL POC Glucose (83-110) mg/dl Calcium 8.4 (8.4-10.2) mg/dl Magnesium (1.8-2.5) mg/dL 01/03/17 01/03/17 01/03/17 Range/Units 05:58 07:43 17:02 WBC (5.0-10.0) 10^3/uL RBC (4.2-5.4) 10^6/uL Hgb (12.0-16.0) g/dL Hct (37.0-47.0) % MCV (80-100) fL MCH (27.0-34.0) pg MCHC (33.0-35.0) g/dL Plt Count (150-450) 10^3/uL Neut % (Auto) (42.2-75.2) % Lymph % (Auto) (20.5-50.1) % [place] % (Auto) (2-8) % Eos % (Auto) (1.0-3.0) % Baso % (Auto) (0.0-1.0) % PT (9.0-12.0) SEC INR (0.9-1.2) Sodium (135-145) mmol/L Potassium (3.6-5.0) mmol/L Chloride (101-111) mmol/L Carbon Dioxide (21.0-31.0) mmol/L Anion Gap BUN (7-18) mg/dL Creatinine (0.6-1.3) mg/dL Est Cr Clr Drug Dosing mL/min Estimated GFR (MDRD) Glucose (74-105) mg/dL POC Glucose 136 H 149 H (83-110) mg/dl Calcium (8.4-10.2) mg/dl Magnesium 2.1 (1.8-2.5) mg/dL Matthew Results last 24 hrs: Microbiology 01/03/17 12:45 Gram Stain - Final Sputum - Expectorated 01/02/17 11:18 Shiga Toxin I & II - Final Stool / Feces 01/02/17 11:20 Stool Culture - Preliminary Other - Stool, Liquid NORMAL ENTERIC OLAF 1 DAY Med Orders - Current: Current Medications Acetaminophen (Tylenol) 650 mg PO Q6H PRN PRN Reason: Pain/Fever Last Admin: 01/02/17 20:34 Dose: 650 mg Albuterol/Ipratropium (Duoneb 3.0-0.5 Mg/3 Ml) 3 ml NEB Q6HRRT [facility] Last Admin: 01/03/17 18:25 Dose: 3 ml Enoxaparin Sodium (Lovenox) 80 mg SUBCUT Q12HR [facility] Last Admin: 01/03/17 20:23 Dose: 80 mg Furosemide (Lasix) 20 mg PO DAILY [facility] Last Admin: 01/03/17 08:43 Dose: 20 mg Guaifenesin (Robitussin) 100 mg PO Q6H PRN PRN Reason: Cough Last Admin: 01/03/17 23:26 Dose: 100 mg Hydrochlorothiazide (Hydrochlorothiazide) 12.5 mg PO DAILY [facility] Last Admin: 01/03/17 08:43 Dose: 12.5 mg Piperacillin Sod/Tazobactam (Sod 3.375 gm/ Sodium Chloride) 100 mls @ 200 mls/ hr IV Q6H [facility] Last Admin: 01/03/17 23:29 Dose: 200 mls/hr Levothyroxine Sodium (Synthroid) 200 mcg PO Q48H [facility] Last Admin: 01/02/17 10:01 Dose: 200 mcg Levothyroxine Sodium (Synthroid) 100 mcg PO Q48H [facility] Last Admin: 01/03/17 06:05 Dose: 100 mcg Losartan Potassium (Cozaar) 100 mg PO DAILY [facility] Last Admin: 01/03/17 08:42 Dose: 100 mg Metformin HCl (Glucophage) 500 mg PO BIDMEALS [facility] Last Admin: 01/03/17 18:25 Dose: 500 mg Metoprolol Succinate (Toprol Xl) 100 mg PO DAILY [facility] Last Admin: 01/03/17 08:38 Dose: 100 mg Omeprazole (Omeprazole) 20 mg PO ACBREAKFAST [facility] Last Admin: 01/03/17 06:04 Dose: 20 mg Pantoprazole Sodium (Protonix Iv) 40 mg IVPUSH DAILY [facility] Last Admin: 01/03/17 08:38 Dose: 40 mg Sodium Chloride (Saline Flush) 10 ml FLUSH ASDIRECTED PRN PRN Reason: Keep Vein Open Last Admin: 01/02/17 11:51 Dose: 10 ml Warfarin Sodium (Pharmacy To Dose - Warfarin) 0 dose PO ASDIRECTED [facility] Zolpidem Tartrate (Ambien) 5 mg PO BEDTIME PRN PRN Reason: Insomnia Last Admin: 01/03/17 23:27 Dose: 5 mg Discontinued Medications Enoxaparin Sodium (Lovenox) 40 mg SUBCUT DAILY [facility] Last Admin: 01/01/17 09:23 Dose: 40 mg Enoxaparin Sodium (Lovenox) 80 mg SUBCUT ONETIME ONE Stop: 01/01/17 22:32 Last Admin: 01/01/17 22:48 Dose: 80 mg Furosemide (Lasix) 40 mg IVPUSH NOW ONE Stop: 01/02/17 08:57 Last Admin: 01/02/17 10:01 Dose: 40 mg Hydrochlorothiazide (Hydrochlorothiazide) 12.5 mg PO DAILY [facility] Last Admin: 01/01/17 22:46 Dose: 12.5 mg Ceftriaxone Sodium 1 gm/ (Sodium Chloride) 50 mls @ 100 mls/hr IV ONETIME ONE Stop: 12/31/16 16:00 Last Admin: 12/31/16 15:51 Dose: 100 mls/hr Potassium Chloride/Sodium Chloride (Normal Saline With 40 Meq Kcl) 1,000 mls @ 50 mls/hr IV ASDIRECTED [facility] Last Admin: 01/01/17 02:14 Dose: 100 mls/hr Potassium Chloride 20 meq/ (Premix) 100 mls @ 50 mls/hr IV Q1H [facility] Stop: 01/01/17 08:58 Last Admin: 01/01/17 08:11 Dose: Not Given Sodium Chloride (Normal Saline) 1,000 mls @ 100 mls/hr IV ASDIRECTED [facility] Last Admin: 01/02/17 02:21 Dose: 100 mls/hr Potassium Chloride 20 meq/ (Premix) 100 mls @ 50 mls/hr IV ONETIME ONE Stop: 01/03/17 11:08 Last Admin: 01/03/17 11:26 Dose: 50 mls/hr Metoprolol Succinate (Toprol Xl) 100 mg PO DAILY [facility] Last Admin: 01/01/17 22:44 Dose: 100 mg Potassium Chloride (Klor-Con 10) 40 meq PO ONETIME ONE Stop: 01/02/17 08:06 Last Admin: 01/02/17 09:01 Dose: 40 meq Potassium Chloride (Klor-Con 10) 40 meq PO ONETIME ONE Stop: 01/02/17 16:01 Last Admin: 01/02/17 15:43 Dose: 40 meq Warfarin Sodium (Coumadin) 5 mg PO DAILY@1400 [facility] Last Admin: 01/02/17 13:35 Dose: 5 mg Warfarin Sodium (Coumadin) 7.5 mg PO ONETIME ONE Stop: 01/03/17 14:01 Last Admin: 01/03/17 13:42 Dose: 7.5 mg - Exam General: alert, oriented Lungs: Normal respiratory effort Abdomen: bowel sounds present, soft, no tenderness - Problem List Review Problem List Initiated/Reviewed/Updated: Yes - My Orders Last 24 Hours: My Active Orders 01/03/17 12:45 CULTURE SPUTUM + SMEAR [RM] Routine - Plan Plan:: episode of hemoptysis most likley from possible Pneumonia: - CXR showed suggest opacites Vs Pneumonia -Will continue her on Zosyn -Robitussin for cough -sputum culture and sensitivities ordered episode of partial Small Bowel obstruction/Ileus: - resolved - was on NGT with suction - now passing gas diarrhea -clinically getting better - needs follow up with gastroenterology possible history of congestive heart failure -no echo available to attest, based mainly from patients verbal history - 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 - was given Lasix 40 mg IV once and restarted her on her daily oral Lasix 20mg -input and output chronic anticoagulation - for atrial fibrillation - being bridged by lovenox - coumadin being dosed by pharmacy Diabetes II ( Non-insulin dependent): continue glucochecks Hypertension: BP with normal range. A-Fib:Chronic: on Toprol and Coumading Hypokalemia: this was replaced with IV KCL recheck K to ensure replacement GI prophylaxis: on Omeprazole; discontinue PRotonix DVT prophylaxis: OJ swain andLovenox Code Status: Full Code
[2017-01-04] MEDS: Albuterol/Ipratropium 3.0-0.5 MG/3 ML Neb Soln NEB SCH ×2 (00:08→07:22)
[2017-01-04] MEDS: Omeprazole 20 MG Cap.CR PO SCH (05:42)
[2017-01-04] MEDS: Levothyroxine 100 MCG Tab PO SCH (05:46)
[2017-01-04] MEDS ORDERED: Potassium Chloride 10 MEQ Tab.ER PO ONE (06:45)
[2017-01-04] MEDS: metFORMIN 500 MG Tab PO SCH (07:37)
[2017-01-04] MEDS ORDERED: Amoxicillin/Clavulanate K 875-125 MG Tab PO SCH (09:00)
[2017-01-04] MEDS: Losartan 50 MG Tab PO SCH (09:28)
[2017-01-04] MEDS: Hydrochlorothiazide 25 MG Tab PO SCH (09:29)
[2017-01-04] MEDS: Furosemide 20 MG Tab PO SCH (09:30)
[2017-01-04] MEDS: Enoxaparin 80 MG/0.8 ML Syringe SUBCUT SCH (09:31)
[2017-01-04] MEDS: Metoprolol Succinate 50 MG Tab.ER PO SCH (09:31)
[2017-01-04 11:02] VITALS: BP 132/67
--- NOTE | 2017-01-05 12:46 | DISCH ---
FINAL DIAGNOSES: 1. Diarrhea. 2. Pneumonia. 3. Recent small bowel obstruction. 4. History of congestive heart failure. 5. Chronic anticoagulation. 6. Diabetes. 7. Hypertension. 8. Chronic atrial fibrillation. BRIEF HISTORY AND PHYSICAL EXAMINATION: The patient is a 76-year-old female admitted on December 31 because of diarrhea and vomiting for a day. She has been having abdominal discomfort and watery stools and not able to pass gas, felt bloated, had 1 episode of vomiting on the day of admission. The patient reports she has history of on and off diarrhea in the last 3 to 4 months prior to this admission. Documented vital signs on admission showed a blood pressure of 114/60, heart rate of 83 beats per minute, respirations 16 breaths per minute, oxygen saturation 93%, temperature 37.8. Documented physical exam showed a normal respiratory effort. Clear to auscultated lungs. Abdomen is soft. Hyperactive bowel sounds. No guarding, rigidity, or rebound tenderness. LABORATORY DATA: Workup done during hospitalization showed a WBC of 10.4, hemoglobin 11.6, INR 1.5, initial troponin 0.03, BNP 413, lactic acid 2.4, potassium 3.2. Urinalysis showed trace leukocyte esterase. Urine WBC 0 to 5. The latest CBC showed WBC of 6.4, hemoglobin 10.9, potassium still low, latest INR 1.4, magnesium 1.9, and creatinine 1.0. CAT scan of the abdomen and pelvis without intravenous contrast on admission showed few loops of mildly dilated small bowel. Air-fluid levels may represent minimal obstruction or an ileus, a 3 cm left ovarian cyst, hepatomegaly 20 cm, and splenomegaly 14 cm. Chest x-ray showed mild opacities in the bases, may represent atelectasis or pneumonia. Abdominal x-ray also showed few loops of distended bowel, may represent obstruction or ileus. MICROBIOLOGIC STUDY: Showed blood culture no growth after 4 days preliminary. No strep isolated. Negative influenza, shiga toxin is negative. Stool culture, no growth. No Salmonella, Shigella, Campylobacter, E. coli. Sputum expectorated final Gram stain, light growth of yeast and C. diff showed negative result. HOSPITAL COURSE: The patient was admitted under medical-surgical bed. Because of the findings of small bowel obstruction, she was kept n.p.o., started on D5 NS with potassium at 75 mL. NG tube placed at intermittent suction with possible pneumonia. She was started on Zosyn. For her diabetes, metformin was on hold, started on insulin. Hypertension has been controlled. Her Coumadin was resumed after her diet was tolerated, meanwhile she was put on Lovenox. GI prophylaxis was also started. On the next day, the patient reports pain being controlled. Her NG tube has been draining significant amount of biliary fluids, started having flatus. The rest were continued. On the third day of hospitalization, she continues to feel better. Had episodes of diarrhea, which was described as black. Continues to cough in addition to her shortness of breath. Reports that she has history of CHF from her valvular problem. Then, her liquid was advanced to clear liquid. NG tube was removed as she has been passing flatus. Stool culture, stool workup was ordered. Given that she was hydrated with reports of CHF, she was given a dose of Lasix 40 mg. Coumadin was resumed, bridged with Lovenox. Subsequently, the patient continues to feel better. Workup most of them were unrevealing. DISCHARGE EXAMINATION: Vital Signs: Blood pressure 132/67, heart rate of 92 beats per minute, respirations 18 breaths per minute, oxygen saturation 97%, and temperature 36.6. DISCHARGE INSTRUCTIONS: The patient is stable to be discharged home. Follow up with the primary provider within 3 to 5 days from discharge with repeat INR and BMP as she has been having hypokalemia on admission, which were replaced, which was attributed either from the diarrhea or from the Lasix. Advised to monitor signs of intolerance from the antibiotic pills that was continued for her pneumonia. She can take probiotic at a different time from the antibiotics. The patient was also started on potassium supplement. To come back to the emergency room if with emergent health concerns. The patient is stable to be discharged home. An appointment was set to see her provider was done. [facility] /[id number]
--- NOTE | 2017-01-23 13:35 | EKG ---
12/31/2016- PARTH QUINONEZ - This is a standard 12-lead EKG showing atrial fibrillation with ventricular rate of 91 beats per minute. No significant ST-T changes. QRS duration, normal. [facility] /[id number]
== END 2017-01-04 13:35 | disposition home or self-care (01) | DRG 388 ==
LOC: DL.ED 13:33 → DL.MS 17:21 → UNDOADMIN 17:21 → INTOOBSV 18:33 → OBSVTOIN 18:33 → DL.MS 18:33 → UNDOADMIN 18:33
PROVIDERS: ADMIT Internal Medicine Nephrology; ATTEND Internal Medicine Nephrology
DX: K56.69 Other intestinal obstruction (principal); J18.9 Pneumonia, unspecified organism; I13.0 Hypertensive heart and chronic kidney disease with heart failure and stage 1 through stage 4 chronic kidney disease, or unspecified chronic kidney disease; E87.1 Hypo-osmolality and hyponatremia; I50.9 Heart failure, unspecified; E11.22 Type 2 diabetes mellitus with diabetic chronic kidney disease; E03.9 Hypothyroidism, unspecified; I48.2 Chronic atrial fibrillation; Z79.01 Long term (current) use of anticoagulants; Z79.84 Long term (current) use of oral hypoglycemic drugs; E87.6 Hypokalemia; R19.7 Diarrhea, unspecified; N18.9 Chronic kidney disease, unspecified; Z95.1 Presence of aortocoronary bypass graft; Z95.2 Presence of prosthetic heart valve; Z88.5 Allergy status to narcotic agent; R16.0 Hepatomegaly, not elsewhere classified; R16.1 Splenomegaly, not elsewhere classified
CPT/HCPCS: 36415; 71020; 74020; 74176; 80053; 81001; 82150; 83605; 83690; 83880; 84484; 85025; 85610; 87040 ×2; 87081; 87430; 87804 ×2; 93005; 96365; 99285; J0696; J7050; 80048; 82962; 83735; 84132; 87045; 87046; 87070; 87205; 87493; 87899; 94010; 94640; 94667; 96367; 99284; A9270-GY; C9113; J1650; J1940; J2543; J3480; J7030

== ENCOUNTER 2021-08-10 13:42 | Emergency (ER) | payer MEDICARE, BC ==
--- NOTE | 2021-08-10 11:46 | EDM.PDOC ---
ED HPI GENERAL MEDICAL PROBLEM - General Stated Complaint: AMBULANCE Time Seen by Provider: 08/10/21 11:35 Source of Information: Reports: Patient History Limitations: Reports: No Limitations - History of Present Illness INITIAL COMMENTS - FREE TEXT/NARRATIVE: This 80 yo female patient was brought to the ED by [facility] due to abdominal pain and kidney pain. The patient reports she did go to [facility] and suddenly had a pain in her right kidney, across her abdomen, felt dizzy and nauseated. The patient reports she continues to have diffuse abdominal pain, but does not feel nauseated at this time. The patient reports she does have a lengthy cardiac history (including 2 AK's in the past). The patient reports she has had her COVID vaccinations as well as her booster and flue shot. Onset: Today Duration: Minutes:, Constant Location: Reports: Abdomen Quality: Reports: Other Severity: Moderate Improves with: Reports: None Worsens with: Reports: None Context: Reports: Other Associated Symptoms: Reports: Nausea/Vomiting - Related Data Allergies Allergy/AdvReac Type Severity Reaction Status Date / Time morphine Allergy Cannot Verified 12/31/16 19:38 Remember Home Meds: Home Meds Furosemide [Lasix] 20 mg PO DAILY 12/31/16 [History] Hydrochlorothiazide 12.5 mg PO DAILY 12/31/16 [History] Levothyroxine Sodium [Levo-T] 200 mcg PO .EVERY OTHER DAY 12/31/16 [History] Levothyroxine Sodium [Tirosint] 100 mcg PO .EVERY OTHER DAY 12/31/16 [History] Losartan Potassium 100 mg PO DAILY 12/31/16 [History] Metoprolol Succinate [Toprol XL] 100 mg PO DAILY 12/31/16 [History] Omeprazole 20 mg PO DAILY 12/31/16 [History] Warfarin [Coumadin] 5 mg PO DAILY 12/31/16 [History] metFORMIN [Glucophage] 500 mg PO BIDMEALS 12/31/16 [History] Amoxicillin/Clavulanate K [Augmentin 875 MG/125 MG] 1 tab PO Q12HR #9 tablet 01/04/17 [Rx] Enoxaparin [Lovenox] 80 mg SUBCUT Q12HR #4 syringe 01/04/17 [Rx] Potassium Chloride 20 meq PO DAILY #5 tablet.er 01/04/17 [Rx] Past Medical History Cardiovascular History: Reports: Heart Failure, Other (See Below) Respiratory History: Reports: Other (See Below) Other Respiratory History: has had "tubes to drain fluid from lung" Gastrointestinal History: Reports: Other (See Below) Other Gastrointestinal History: ulcer Genitourinary History: Reports: Other (See Below) Other Genitourinary History: UTI leading to sepsis Other Neuro History: migraines vs ?TIA, on coumadin Endocrine/Metabolic History: Reports: Hyperthyroidism Hematologic History: Reports: Anticoagulation Therapy Oncologic (Cancer) History: Reports: Basal Cell Carcinoma Other Dermatologic History: basal cell carcinoma, removed from face - Past Surgical History Cardiovascular Surgical History: Reports: Coronary Artery Bypass, Valve Replacement Social & Family History - Family History Family Medical History: No Pertinent Family History - Caffeine Use Caffeine Use: Reports: Coffee ED ROS GENERAL - Review of Systems Review Of Systems: Comprehensive ROS is negative, except as noted in HPI. ED EXAM, GENERAL - Physical Exam Exam: See Below Exam Limited By: No Limitations General Appearance: Alert, WD/WN, Mild Distress Eye Exam: Bilateral Eye: EOMI, Normal Inspection, PERRL Ears: Normal External Exam, Normal Canal, Hearing Grossly Normal, Normal TMs Nose: Normal Inspection Throat/Mouth: Normal Inspection, Normal Lips, Normal Teeth, Normal Gums, Normal Oropharynx, Normal Voice, No Airway Compromise Head: Atraumatic, Normocephalic Neck: Normal Inspection, Supple, Non-Tender, Full Range of Motion Respiratory/Chest: No Respiratory Distress, Lungs Clear, Normal Breath Sounds, No Accessory Muscle Use, Chest Non-Tender Cardiovascular: Normal Peripheral Pulses, Regular Rate, Rhythm, No Edema, No Gallop, No JVD, No Murmur, No Rub GI/Abdominal: Other (hyperactive bowel sounds) (Female) Exam: Deferred Rectal (Female) Exam: Deferred Back Exam: Normal Inspection, Full Range of Motion, NT Extremities: Normal Inspection, Normal Range of Motion, Non-Tender, Normal Capillary Refill, No Pedal Edema Neurological: Alert, Oriented, CN II-XII Intact, Normal Cognition, Normal Gait, Normal Reflexes, No Motor/Sensory Deficits Psychiatric: Normal Affect, Normal Mood Skin Exam: Warm, Dry, Intact, Normal Color, No Rash Lymphatic: No Adenopathy Course - Vital Signs Last Recorded V/S: Last Vital Signs Temp 98.1 F 08/10/21 11:45 Pulse 101 H 08/10/21 11:45 Resp 16 08/10/21 11:45 BP 137/76 08/10/21 11:45 Pulse Ox 99 08/10/21 11:45 - Orders/Labs/Meds Orders: Active Orders 24 hr Category Date Time Status CULTURE BLOOD [BC] Stat Lab 08/10/21 11:25 Received Labs: Laboratory Tests 08/10/21 08/10/21 08/10/21 Range/Units 11:25 11:54 11:54 WBC 8.1 (5.0-10.0) 10^3/uL RBC 5.29 (4.2-5.4) 10^6/uL Hgb 13.1 D (12.0-16.0) g/dL Hct 40.7 (37.0-47.0) % MCV 76.9 L D (80-100) fL MCH 24.8 L (27.0-34.0) pg MCHC 32.2 L (33.0-35.0) g/dL Plt Count 194 (150-450) 10^3/uL Neut % (Auto) 70.0 (42.2-75.2) % Lymph % (Auto) 16.2 L (20.5-50.1) % Barry % (Auto) 8.7 H (2-8) % Eos % (Auto) 4.4 H (1.0-3.0) % Baso % (Auto) 0.7 (0.0-1.0) % PT 15.4 H (9.0-12.0) SEC INR 1.5 H (0.9-1.2) D-Dimer, Quantitative 425 H (0-400) ng/mL Sodium 137 (136-145) mmol/L Potassium 3.7 (3.5-5.1) mmol/L Chloride 102 (98-107) mmol/L Carbon Dioxide 22 (21-32) mmol/L Anion Gap 16.7 H (7-13) mEq/L BUN 19 H (7-18) mg/dL Creatinine 1.02 (0.55-1.02) mg/dL Est Cr Clr Drug Dosing TNP Estimated GFR (MDRD) 52 BUN/Creatinine Ratio 18.6 (No establ ref range) Glucose 224 H (70-99) mg/dL Lactic Acid (0.4-2.0) mmol/L Calcium 9.1 (8.5-10.1) mg/dL Total Bilirubin 0.7 (0.2-1.0) mg/dL AST 23 (15-37) U/L ALT 29 (14-59) U/L Alkaline Phosphatase 92 (46-116) U/L Troponin I High Sens 14 (<=51) pg/mL Total Protein 6.9 (6.4-8.2) g/dL Albumin 3.4 (3.4-5.0) g/dL Globulin 3.5 Albumin/Globulin Ratio 1.0 Urine Color (YELLOW) Urine Appearance (CLEAR) Urine pH (5.0-9.0) Ur Specific [place] (1.005-1.030) Urine Protein (NEGATIVE) Urine Glucose (UA) (NEGATIVE) Urine Ketones (NEGATIVE) Urine Occult Blood (NEGATIVE) Urine Nitrite (NEGATIVE) Urine Bilirubin (NEGATIVE) Urine Urobilinogen (0.2-1.0) mg/dL Ur Leukocyte Esterase (NEGATIVE) Urine RBC (0-5) /HPF Urine WBC (0-5/HPF) /HPF Ur Epithelial Cells (NOT SEEN) /HPF Urine Bacteria (0-FEW/HPF) /HPF Urine Mucus (NOT SEEN) /LPF Influenza Type A RNA (NEGATIVE) Influenza Type B RNA (NEGATIVE) SARS-CoV-2 RNA (MC) (NEGATIVE) 08/10/21 08/10/21 08/10/21 Range/Units 11:54 11:55 12:00 WBC (5.0-10.0) 10^3/uL RBC (4.2-5.4) 10^6/uL Hgb (12.0-16.0) g/dL Hct (37.0-47.0) % MCV (80-100) fL MCH (27.0-34.0) pg MCHC (33.0-35.0) g/dL Plt Count (150-450) 10^3/uL Neut % (Auto) (42.2-75.2) % Lymph % (Auto) (20.5-50.1) % Barry % (Auto) (2-8) % Eos % (Auto) (1.0-3.0) % Baso % (Auto) (0.0-1.0) % PT (9.0-12.0) SEC INR (0.9-1.2) D-Dimer, Quantitative (0-400) ng/mL Sodium (136-145) mmol/L Potassium (3.5-5.1) mmol/L Chloride (98-107) mmol/L Carbon Dioxide (21-32) mmol/L Anion Gap (7-13) mEq/L BUN (7-18) mg/dL Creatinine (0.55-1.02) mg/dL Est Cr Clr Drug Dosing Estimated GFR (MDRD) BUN/Creatinine Ratio (No establ ref range) Glucose (70-99) mg/dL Lactic Acid 1.7 (0.4-2.0) mmol/L Calcium (8.5-10.1) mg/dL Total Bilirubin (0.2-1.0) mg/dL AST (15-37) U/L ALT (14-59) U/L Alkaline Phosphatase (46-116) U/L Troponin I High Sens (<=51) pg/mL Total Protein (6.4-8.2) g/dL Albumin (3.4-5.0) g/dL Globulin Albumin/Globulin Ratio Urine Color Yellow (YELLOW) Urine Appearance Clear (CLEAR) Urine pH 6.5 (5.0-9.0) Ur Specific [place] 1.015 (1.005-1.030) Urine Protein Negative (NEGATIVE) Urine Glucose (UA) 100 H (NEGATIVE) Urine Ketones Negative (NEGATIVE) Urine Occult Blood Trace-intact H (NEGATIVE) Urine Nitrite Negative (NEGATIVE) Urine Bilirubin Negative (NEGATIVE) Urine Urobilinogen 0.2 (0.2-1.0) mg/dL Ur Leukocyte Esterase Negative (NEGATIVE) Urine RBC 0-5 (0-5) /HPF Urine WBC 0-5 (0-5/HPF) /HPF Ur Epithelial Cells Rare (NOT SEEN) /HPF Urine Bacteria Rare (0-FEW/HPF) /HPF Urine Mucus Not seen (NOT SEEN) /LPF Influenza Type A RNA Negative (NEGATIVE) Influenza Type B RNA Negative (NEGATIVE) SARS-CoV-2 RNA (MC) Negative (NEGATIVE) 08/10/21 Range/Units 13:05 WBC (5.0-10.0) 10^3/uL RBC (4.2-5.4) 10^6/uL Hgb (12.0-16.0) g/dL Hct (37.0-47.0) % MCV (80-100) fL MCH (27.0-34.0) pg MCHC (33.0-35.0) g/dL Plt Count (150-450) 10^3/uL Neut % (Auto) (42.2-75.2) % Lymph % (Auto) (20.5-50.1) % Barry % (Auto) (2-8) % Eos % (Auto) (1.0-3.0) % Baso % (Auto) (0.0-1.0) % PT (9.0-12.0) SEC INR (0.9-1.2) D-Dimer, Quantitative (0-400) ng/mL Sodium (136-145) mmol/L Potassium (3.5-5.1) mmol/L Chloride (98-107) mmol/L Carbon Dioxide (21-32) mmol/L Anion Gap (7-13) mEq/L BUN (7-18) mg/dL Creatinine (0.55-1.02) mg/dL Est Cr Clr Drug Dosing Estimated GFR (MDRD) BUN/Creatinine Ratio (No establ ref range) Glucose (70-99) mg/dL Lactic Acid (0.4-2.0) mmol/L Calcium (8.5-10.1) mg/dL Total Bilirubin (0.2-1.0) mg/dL AST (15-37) U/L ALT (14-59) U/L Alkaline Phosphatase (46-116) U/L Troponin I High Sens 15 (<=51) pg/mL Total Protein (6.4-8.2) g/dL Albumin (3.4-5.0) g/dL Globulin Albumin/Globulin Ratio Urine Color (YELLOW) Urine Appearance (CLEAR) Urine pH (5.0-9.0) Ur Specific [place] (1.005-1.030) Urine Protein (NEGATIVE) Urine Glucose (UA) (NEGATIVE) Urine Ketones (NEGATIVE) Urine Occult Blood (NEGATIVE) Urine Nitrite (NEGATIVE) Urine Bilirubin (NEGATIVE) Urine Urobilinogen (0.2-1.0) mg/dL Ur Leukocyte Esterase (NEGATIVE) Urine RBC (0-5) /HPF Urine WBC (0-5/HPF) /HPF Ur Epithelial Cells (NOT SEEN) /HPF Urine Bacteria (0-FEW/HPF) /HPF Urine Mucus (NOT SEEN) /LPF Influenza Type A RNA (NEGATIVE) Influenza Type B RNA (NEGATIVE) SARS-CoV-2 RNA (MC) (NEGATIVE) Departure - Departure Time of Disposition: 13:40 Disposition: Home, Self-Care 01 Condition: Fair Clinical Impression: Gastroenteritis - Discharge Information *PRESCRIPTION DRUG MONITORING PROGRAM REVIEWED*: Not Applicable *COPY OF PRESCRIPTION DRUG MONITORING REPORT IN PATIENT BRITTANY: Not Applicable Forms: ED Department Discharge Care Plan Goals: The patient was advised of the examination, lab results, EKG results and repeat lab results during the visit. The patient was encouraged to continue to monitor for any additional symptoms. If the patient has any additional symptoms or concerns, the patient should either return to the emergency department or visit her primary care facility. Sepsis Event Note (ED) - Focused Exam Vital Signs: Vital Signs Temp Pulse Resp BP Pulse Ox 08/10/21 11:45 98.1 F 101 H 16 137/76 99 - My Orders Last 24 Hours: My Active Orders 08/10/21 11:25 CULTURE BLOOD [BC] Stat - Assessment/Plan Last 24 Hours: My Active Orders 08/10/21 11:25 CULTURE BLOOD [BC] Stat
--- NOTE | 2021-08-10 12:04 | CR ---
PROCEDURE INFORMATION: Exam: XR Chest Exam date and time: 08/10/2021 11:41 AM Age: 80 years old Clinical indication: Other: Chest pain with shortness of breath TECHNIQUE: Imaging protocol: XR of the chest. Views: 1 view. COMPARISON: No relevant prior studies available. FINDINGS: Lungs: Mild left upper lobe and right lower lobe atelectasis. The lungs are otherwise clear. Pleural spaces: Normal. Heart/Mediastinum: Normal heart and cardio-mediastinal silhouette. Vasculature: Surgical change indicating prior aortic valvuloplasty and proximal aortic stenting. Atherosclerosis. Bones/joints: Intact and normally aligned. No suspicious lesion. IMPRESSION: Atherosclerosis. No acute disease.
[2021-08-10 12:24] LABS: ANION GAP 16.7 mEq/L (7-13); CHLORIDE,CL 102 mmol/L (98-107); SODIUM,NA 137 mmol/L (136-145)
[2021-08-10 12:46] LABS: CORONAVIRUS COVID-19 NAA NEGATIVE (NEGATIVE)
[2021-08-10 13:01] VITALS: BP 137/76; PULSE 101
== END 2021-08-10 14:00 | disposition home or self-care (01) ==
LOC: DL.ED 13:42
DX: K52.9 Noninfective gastroenteritis and colitis, unspecified (principal); I50.9 Heart failure, unspecified; E05.90 Thyrotoxicosis, unspecified without thyrotoxic crisis or storm; Z88.5 Allergy status to narcotic agent; Z79.01 Long term (current) use of anticoagulants; Z79.899 Other long term (current) drug therapy; Z20.822 Contact with and (suspected) exposure to COVID-19
CPT/HCPCS: 0240U; 36415; 71045; 80053; 81001; 83605; 84484; 85025; 85379; 85610; 87040; 93005; 99285

== ENCOUNTER 2023-04-04 03:32 | Emergency (ER) | payer MEDICARE, BC ==
[2023-04-04] MEDS: Sodium Chloride 0.9% 10 ML Syringe FLUSH PRN (04:03)
[2023-04-04 04:14] LABS: BASOPHILS PERCENT AUTO 0.8 % (0.0-1.0); EOSINOPHILS PERCENT AUTO 4.6 % (1.0-3.0); HEMATOCRIT 37.3 % (37.0-47.0); HEMOGLOBIN 12.2 g/dL (12.0-16.0); LYMPHOCYTES PERCENT AUTO 14.3 % (20.5-50.1); MEAN CORPUSCULAR HEMOGLOBIN 28.4 pg (27.0-34.0); MEAN CORPUSCULAR HGB CONC 32.7 g/dL (33.0-35.0); MEAN CORPUSCULAR VOLUME 86.7 fL (80-100); NEUTROPHILS PERCENT AUTO 70.3 % (42.2-75.2); PLATELET COUNT,PLT 184 10^3/uL (150-450); WHITE BLOOD CELL COUNT,WBC 8.7 10^3/uL (5.0-10.0)
[2023-04-04 04:23] LABS: APPEARANCE,URINE CLEAR (CLEAR); BILIRUBIN,URINE NEGATIVE (NEGATIVE); COLOR,URINE YELLOW (YELLOW); GLUCOSE,URINE NEGATIVE (NEGATIVE); KETONES,URINE NEGATIVE (NEGATIVE); LEUKOCYTE ESTERASE,URINE TRACE (NEGATIVE); NITRITE,URINE NEGATIVE (NEGATIVE); OCCULT BLOOD,URINE NEGATIVE (NEGATIVE); PH,URINE 7.5 (5.0-9.0); PROTEIN,URINE NEGATIVE (NEGATIVE); UROBILINOGEN,URINE 0.2 mg/dL (0.2-1.0)
[2023-04-04 04:36] LABS: BACTERIA,URINE FEW /HPF (0-FEW/HPF); EPITHELIAL CELLS,URINE FEW /HPF (NOT SEEN); MUCUS,URINE RARE /LPF (NOT SEEN)
[2023-04-04 04:45] LABS: ALBUMIN 3.6 g/dL (3.4-5.0); ANION GAP 15.5 mEq/L (7-13); BUN/CREATININE RATIO 21.7 (No establ ref range); CALCIUM 9.1 mg/dL (8.5-10.1); CREATININE 1.29 mg/dL (0.55-1.02); EST CRCL DRUG DOSING (CG) 29.21 mL/min; POTASSIUM,K 3.5 mmol/L (3.5-5.1); PROTEIN TOTAL,TP 7.1 g/dL (6.4-8.2)
[2023-04-04] MEDS: Sodium Chloride 0.9% 1,000 ML IV ONE (04:57)
[2023-04-04] MEDS: cefTRIAXone 1 GM Vial IVPUSH ONE (04:57)
[2023-04-04 05:38] VITALS: BP 132/76; PULSE 66
== END 2023-04-04 05:35 | disposition home or self-care (01) ==
LOC: DL.ED 03:32
DX: R42 Dizziness and giddiness (principal); E05.90 Thyrotoxicosis, unspecified without thyrotoxic crisis or storm; I50.9 Heart failure, unspecified; Z88.5 Allergy status to narcotic agent; Z79.01 Long term (current) use of anticoagulants; Z79.84 Long term (current) use of oral hypoglycemic drugs; Z79.899 Other long term (current) drug therapy
CPT/HCPCS: 36415; 80053; 81001; 84484; 85025; 93005; 96374; 99284-25; J0696; J3490; J7030